=== PATIENT | male | born 1990 | race American Indian/Alaskan Native ===

== ENCOUNTER 2016-05-03 19:13 | Emergency (ER) | payer SELFPAY ==
[2016-05-04] MEDS ORDERED: NACL 0.9% 1000 ML 0 ML ONE (00:27)
[2016-05-04 00:33] VITALS: BP 136/81
--- NOTE | 2016-05-04 00:44 | Emergency Department Report ---
ED Male HPI - General Chief complaint: Urogenital-Male Stated complaint: URINARY PROBLEMS Time Seen by Provider: 05/04/16 00:42 Source: patient Mode of arrival: Ambulatory Limitations: No Limitations - History of Present Illness Initial comments: Patient is a 25-year-old male who presents to ED complaining of painful urination as well as penile discharge 2 days. Patient states he knows. Discharged today's. She states discharge as cranial life. Patient states burning sensation with urination. Patient admits to having a sent sexual intercourse without protection. Patient denies testicular pain or scrotal pain, fever, abdominal pain, chest pain, shortness of breath or any other symptoms. MD Complaint: penile discharge, dysuria - Related Data Previous Rx's Medication Instructions Recorded Last Taken Type Ciprofloxacin HCl [Ciprofloxacin 500 mg PO Q12HR #12 tab 05/04/16 Unknown Rx TAB] Allergies Allergy/AdvReac Type Severity Reaction Status Date / Time No Known Allergies Allergy Verified 05/04/16 00:32 ED Review of Systems ROS: Stated complaint: URINARY PROBLEMS Other details as noted in HPI Constitutional: denies: chills, fever Eyes: denies: eye pain, eye discharge, vision change ENT: denies: ear pain, throat pain, dental pain, hearing loss, epistaxis Respiratory: denies: no symptoms reported, cough, shortness of breath, wheezing Cardiovascular: denies: chest pain, palpitations Endocrine: no symptoms reported Gastrointestinal: denies: abdominal pain, nausea, diarrhea Genitourinary: dysuria, discharge. denies: urgency, frequency, hematuria, testicular pain, testicular mass Musculoskeletal: denies: back pain, joint swelling, arthralgia, myalgia Skin: denies: rash, lesions Neurological: denies: headache, weakness, paresthesias Psychiatric: denies: anxiety, depression Hematological/Lymphatic: denies: easy bleeding, easy bruising ED Past Medical Hx - Past Medical History Previous Medical History?: No - Surgical History Past Surgical History?: No - Social History Smoking Status: Light Tobacco Smoker Substance Use Type: Alcohol - Medications Home Medications: Home Medications Medication Instructions Recorded Confirmed Last Taken Type Ciprofloxacin HCl [Ciprofloxacin 500 mg PO Q12HR #12 tab 05/04/16 Unknown Rx TAB] ED Physical Exam - General Limitations: No Limitations General appearance: alert, in no apparent distress - Head Head exam: Present: atraumatic, normocephalic - Eye Eye exam: Present: normal appearance, PERRL Pupils: Present: normal accommodation - ENT ENT exam: Present: mucous membranes moist - Neck Neck exam: Present: normal inspection, full ROM. Absent: lymphadenopathy - Respiratory Respiratory exam: Present: normal lung sounds bilaterally. Absent: respiratory distress, wheezes, rales, rhonchi - Cardiovascular Cardiovascular Exam: Present: regular rate, normal rhythm. Absent: systolic murmur, diastolic murmur, rubs, gallop - GI/Abdominal GI/Abdominal exam: Present: soft, normal bowel sounds. Absent: distended, tenderness, guarding, rebound - Rectal Rectal exam: Present: normal inspection - exam: Present: normal inspection, urethral discharge. Absent: testicular tenderness, scrotal swelling External exam: Present: normal external exam. Absent: swelling, lesions, lacerations, bleeding - Extremities Exam Extremities exam: Present: normal inspection, full ROM, normal capillary refill. Absent: calf tenderness - Back Exam Back exam: Present: normal inspection, full ROM. Absent: CVA tenderness (R), CVA tenderness (L), muscle spasm - Neurological Exam Neurological exam: Present: alert, oriented X3, CN II-XII intact - Psychiatric Psychiatric exam: Present: normal affect, normal mood - Skin Skin exam: Present: warm, dry, intact, normal color. Absent: rash ED Course Vital Signs 05/03/16 05/04/16 19:51 00:32 Temperature 97.9 F 97.8 F Pulse Rate 64 54 L Respiratory 22 18 Rate Blood Pressure 136/96 Blood Pressure 136/81 [Right] O2 Sat by Pulse 100 100 Oximetry ED Medical Decision Making - Medical Decision Making 25-year-old male presents with penile discharge. Signs stable patient is in no distress. UA ordered. Gonnorhea and chlamydia testing ordered. UA results shows positive white blood cells of 104. 8.0 red blood cells. Discussed discharge home with antibiotic therapy. Discussed to take antibiotic as prescribed twice a day for 6 days. Patient received Rocephin 250 IM as well as 1 g azithromycin 1 time in ED. Discussed to follow up with health department or primary care physician for further STD testing Discussed with patient safe sex practices. Discussed protection via condoms intercourse. Referrals given. Discussed the follow-up with primary care physician has referred. Critical care attestation.: If time is entered above; I have spent that time in minutes in the direct care of this critically ill patient, excluding procedure time. ED Disposition Clinical Impression: Dysuria, Urethritis Disposition: DISCHARGED TO HOME OR SELFCARE Is pt being admited?: No Does the pt Need Aspirin: No Condition: Stable Instructions: Sexually Transmitted Diseases (ED), Safe Sex (ED), Dysuria (ED), Urinary Tract Infection in Men (ED) Additional Instructions: Follow-up referrals given. Prescriptions: Ciprofloxacin HCl [Ciprofloxacin TAB] 500 mg PO Q12HR #12 tab Referrals: PRIMARY CARE, [Primary Care Provider] - 3-5 Days [facility] [Outside] - 3-5 Days [facility] [Outside] - 3-5 Days [facility] [Outside] - 3-5 Days [facility] [Outside] - 3-5 Days [facility] [Outside] - 3-5 Days Forms: Work/School Release Form(ED), STI Treatment and Prevention Time of Disposition: 02:28
[2016-05-04 01:54] LABS: Bilirubin,Urine NEG (Negative); Blood,Urine NEG (Negative); Ketones,Urine NEG (Negative); Leukocyte Esterase,Urine LG (Negative); Nitrite,Urine NEG (Negative); Protein,Urine <15 mg/dL mg/dL (Negative); Urobilinogen,Urine < 2.0 mg/dL (<2.0)
[2016-05-04] MEDS ORDERED: XYLOCAINE 1% MPF 5 mL INFILTRATI ONE (02:24)
[2016-05-04] MEDS ORDERED: ZITHROMAX PO ONE (02:24)
[2016-05-04] MEDS ORDERED: ROCEPHIN IM ONE (02:24)
== END 2016-05-04 02:28 | disposition home or self-care (01) ==
LOC: ED 19:13
DX: N34.2 Other urethritis (principal); R30.0 Dysuria; F17.200 Nicotine dependence, unspecified, uncomplicated
CPT/HCPCS: 81001; 96372; 99283; J0696; J7030